=== PATIENT | male | born 2000 | race African-American/Black ===

== ENCOUNTER 2023-01-15 19:41 | Emergency (ER) | payer OTHER ==
[~2023-01-15] VITALS: Ht 188 cm; Wt 129.7 kg
[2023-01-15 19:43] VITALS: BP 136/85; TEMP 97.5; O2SAT 95
[2023-01-16] MEDS ORDERED: BOOSTRIX VACCINE (TETANUS/DIPHTH/ACEL. PERTUSSIS) 0.5ML SYR IM ONE (00:20)
[2023-01-16] MEDS ORDERED: AUGMENTIN 875 MG TAB PO ONE (00:20)
[2023-01-16] MEDS ORDERED: AMOX875T2 PO (00:21)
== END 2023-01-16 00:47 | disposition home or self-care (01) ==
LOC: M ED 19:41
DX: S01.551A Open bite of lip, initial encounter (principal)